=== PATIENT | male | born 1955 | race African-American/Black ===

== ENCOUNTER 2017-06-25 03:57 | Inpatient (IN) | payer OTHER ==
[~2017-06-25] VITALS: Ht 180.3 cm; Wt 127.0 kg
[2017-06-25] VITALS (8 sets, daily range): BP systolic 128–169; BP diastolic 63–89
[2017-06-25] MEDS ORDERED: UNOBMED (04:04)
[2017-06-25 04:20] LABS: BASOPHILS % (AUTO) 1.2 % (0.0-2.0); EOSINOPHILS % (AUTO) 0.6 % (0.0-3.0); LYMPHOCYTES % (AUTO) 36.5 % (20.0-45.0); MEAN CORPUSCULAR HEMOGLOBIN 27.9 PG (27.0-31.0); MEAN CORPUSCULAR VOLUME 87 FL (80-99); MEAN PLATELET VOLUME 6.5 FL (6.5-10.1); NEUTROPHILS % (AUTO) 52.6 % (45.0-75.0); PLATELET COUNT 256 K/UL (150-450); RED BLOOD COUNT 5.35 M/UL (4.70-6.10); RED CELL DISTRIBUTION WIDTH 12.9 % (11.6-14.8); WHITE BLOOD COUNT 8.5 K/UL (4.8-10.8)
--- NOTE | 2017-06-25 04:21 | Emergency Room Report ---
History of Present Illness General Chief Complaint: Seizure Source: Patient Present Illness HPI Patient is a 62-year-old male who presented after having a witnessed seizure. The patient had no prior history of seizure disorder. The patient had a seizure approximately one to 2 minutes full body tonic-clonic. This was witnessed by his . Patient was in bed at the time of seizure. The patient been previously well. He does not take any seizure medications. He had not been having any recent fever or illness. The patient reports having some pain to his tongue. The patient currently does not drink alcohol regularly. Allergies: Coded Allergies: No Known Allergies (Unverified , 06/25/17) Patient History Past Medical History: see triage record Reviewed Nursing Documentation: PMH: Agreed, PSxH: Agreed Nursing Documentation-PMH Hx Hypertension: Yes Review of Systems All Other Systems: negative except mentioned in HPI Physical Exam Vital Signs Date Time Temp Pulse Resp B/P (MAP) Pulse Ox O2 Delivery O2 Flow Rate FiO2 06/25/17 03:59 98.1 70 12 169/78 92 Room Air Sp02 EP Interpretation: reviewed, normal General Appearance: normal inspection, well appearing, no apparent distress, alert, GCS 15, obese Head: atraumatic ENT: normal ENT inspection, hearing grossly normal, normal voice, other - tongue abrasion Neck: normal inspection, full range of motion, supple, no bony tend Respiratory: normal inspection, lungs clear, normal breath sounds, no respiratory distress, no retraction, no wheezing Cardiovascular #1: regular rate, rhythm, no edema Gastrointestinal: normal inspection, normal bowel sounds, non tender, soft, no guarding, no hernia Genitourinary: no CVA tenderness Musculoskeletal: normal inspection, back normal, normal range of motion Neurologic: normal inspection, alert, oriented x3, responsive, guest services manager III-XII nml as tested, motor strength/tone normal, speech normal Psychiatric: normal inspection, judgement/insight normal, mood/affect normal Skin: normal inspection, normal color, no rash Medical Decision Making Diagnostic Impression: Primary Impression: Epileptic seizure, generalized ER Course Patient presented for new-onset seizure. Differential diagnosis included cysticercosis, CVA, meningitis, encephalitis, electrolyte abnormality, mass lesion, or cranial hemorrhage. Because of complexity of patient's case laboratory testing and imaging studies were ordered.EKG interpreted by me showed normal sinus rhythm with a rate of [address] or T wave changes. QTC was noted to be slightly prolonged 467. the patient was noted to have gradually improving mental status. CT the head read by radiology showed a prior orbital blowout fracture without acute intracranial abnormality. Dr. Bloden was contacted for capitated physician. The patient was given aspirin by mouth. Patient is given Maalox for GI prophylaxis due to prior history of ulcer Labs Test 06/25/17 04:05 White Blood Count 8.5 K/UL (4.8-10.8) Red Blood Count 5.35 M/UL (4.70-6.10) Hemoglobin 14.9 G/DL (14.2-18.0) Hematocrit 46.7 % (42.0-52.0) Mean Corpuscular Volume 87 FL (80-99) Mean Corpuscular Hemoglobin 27.9 PG (27.0-31.0) Mean Corpuscular Hemoglobin Concent 32.0 G/DL (32.0-36.0) Red Cell Distribution Width 12.9 % (11.6-14.8) Platelet Count 256 K/UL (150-450) Mean Platelet Volume 6.5 FL (6.5-10.1) Neutrophils (%) (Auto) 52.6 % (45.0-75.0) Lymphocytes (%) (Auto) 36.5 % (20.0-45.0) Monocytes (%) (Auto) 9.0 % (1.0-10.0) Eosinophils (%) (Auto) 0.6 % (0.0-3.0) Basophils (%) (Auto) 1.2 % (0.0-2.0) Prothrombin Time 10.0 SEC (9.30-11.50) Prothromb Time International Ratio 1.0 (0.9-1.1) Activated Partial Thromboplast Time 24 SEC (23-33) Sodium Level 138 MMOL/L (136-145) Potassium Level 3.4 MMOL/L (3.5-5.1) Chloride Level 103 MMOL/L (98-107) Carbon Dioxide Level 25 MMOL/L (21-32) Anion Gap 10 mmol/L (5-15) Blood Urea Nitrogen 13 mg/dL (7-18) Creatinine 1.2 MG/DL (0.55-1.30) Estimat Glomerular Filtration Rate > 60 mL/min (>60) Glucose Level 145 MG/DL (74-106) Calcium Level 8.7 MG/DL (8.5-10.1) Total Bilirubin 0.4 MG/DL (0.2-1.0) Aspartate Amino Transf (AST/SGOT) 24 U/L (15-37) Alanine Aminotransferase (ALT/SGPT) 37 U/L (12-78) Alkaline Phosphatase 83 U/L (46-116) Troponin I 0.000 ng/mL (0.000-0.056) Total Protein 7.6 G/DL (6.4-8.2) Albumin 3.7 G/DL (3.4-5.0) Globulin 3.9 g/dL Albumin/Globulin Ratio 0.9 (1.0-2.7) Triglycerides Level 117 MG/DL (0-200) Cholesterol Level 198 MG/DL (< 200) LDL Cholesterol 115 mg/dL (<100) HDL Cholesterol 53 MG/DL (40-60) Cholesterol/HDL Ratio 3.7 (3.3-4.4) EKG Diagnostic Results Rate: normal Rhythm: NSR ST Segments: no acute changes Last Vital Signs Date Time Temp Pulse Resp B/P (MAP) Pulse Ox O2 Delivery O2 Flow Rate FiO2 06/25/17 03:59 98.1 70 12 169/78 92 Room Air Status: unchanged Disposition: ADMITTED INPATIENT Condition: Serious Matt Hammonds Jun 25, 2017 04:21
[2017-06-25] MEDS ORDERED: levETIRAcetam 1,000mg/NS100ml 100 ML IVPB ONE (04:30)
[2017-06-25 04:34] LABS: ANION GAP 10 mmol/L (5-15); CALCIUM 8.7 MG/DL (8.5-10.1); CARBON DIOXIDE 25 MMOL/L (21-32); CHLORIDE 103 MMOL/L (98-107); CREATININE 1.2 MG/DL (0.55-1.30); GLOMERULAR FILTRATION RATE > 60 mL/min (>60); POTASSIUM 3.4 MMOL/L (3.5-5.1); SODIUM 138 MMOL/L (136-145)
[2017-06-25 04:39] LABS: ALANINE AMINOTRANSFERASE 37 U/L (12-78); ALBUMIN/GLOBULIN RATIO 0.9 (1.0-2.7); ASPARTATE AMINO TRANSFERASE 24 U/L (15-37); CHOLESTEROL 198 MG/DL (< 200); CHOLESTEROL/HDL RATIO 3.7 (3.3-4.4); TOTAL PROTEIN 7.6 G/DL (6.4-8.2)
[2017-06-25] MEDS ORDERED: AMLODIPINE BES2.5 MG ORAL (05:04)
[2017-06-25] MEDS ORDERED: Aspirin Baby 81mg ORAL ONE ×2 (05:45→09:00)
--- NOTE | 2017-06-25 09:23 | Diagnostic Imaging Report ---
Indication: Altered mental status Technique: Continuous helical CT scanning of the head was performed without intravenous contrast material. Axial and coronal 5 mm sections were generated. Radiation dose was minimized using automated exposure control Dose: Total Dose Length Product - DLP [address] Dose Index - CTDIvol(s) 70.38 mGy. Comparison: None Findings: The ventricular system is normal in size and configuration. There is no shift of midline structures. No abnormal extra-axial fluid collections are noted. There is no evidence of intracerebral bleeding. No other abnormal high or low density areas are noted within the brain. The calvarium is intact. The mastoids are clear. There is slight deformity of the right inferior and medial orbital mota and questionably the nasal bone, could be posttraumatic. Impression: Normal CT scan of the head without contrast material. Possible posttraumatic changes of the right orbit nasal bone-correlate with clinical history This agrees with the preliminary interpretation provided overnight by [facility] teleradiology service. The CT scanner at [facility] is accredited by the [employer] and the scans are performed using protocols designed to limit radiation exposure to as low as reasonably achievable to attain images of sufficient resolution adequate for diagnostic evaluation.
[2017-06-25] MEDS ORDERED: PRAVASTATIN SOD20 M1 ORAL (10:29)
[2017-06-25] MEDS ORDERED: WARFARIN SODIUM10 MG ORAL (10:42)
--- NOTE | 2017-06-25 11:57 | Neurology Progress Note ---
Objective Physical Exam Last Vital Signs Date Time Temp Pulse Resp B/P (MAP) Pulse Ox O2 Delivery O2 Flow Rate FiO2 06/25/17 08:32 56 20 131/71 99 Nasal Cannula 2.0 06/25/17 07:55 97.7 Laboratory Tests Test 06/25/17 04:05 White Blood Count 8.5 K/UL (4.8-10.8) Red Blood Count 5.35 M/UL (4.70-6.10) Hemoglobin 14.9 G/DL (14.2-18.0) Hematocrit 46.7 % (42.0-52.0) Mean Corpuscular Volume 87 FL (80-99) Mean Corpuscular Hemoglobin 27.9 PG (27.0-31.0) Mean Corpuscular Hemoglobin Concent 32.0 G/DL (32.0-36.0) Red Cell Distribution Width 12.9 % (11.6-14.8) Platelet Count 256 K/UL (150-450) Mean Platelet Volume 6.5 FL (6.5-10.1) Neutrophils (%) (Auto) 52.6 % (45.0-75.0) Lymphocytes (%) (Auto) 36.5 % (20.0-45.0) Monocytes (%) (Auto) 9.0 % (1.0-10.0) Eosinophils (%) (Auto) 0.6 % (0.0-3.0) Basophils (%) (Auto) 1.2 % (0.0-2.0) Prothrombin Time 10.0 SEC (9.30-11.50) Prothromb Time International Ratio 1.0 (0.9-1.1) Activated Partial Thromboplast Time 24 SEC (23-33) Sodium Level 138 MMOL/L (136-145) Potassium Level 3.4 MMOL/L (3.5-5.1) L Chloride Level 103 MMOL/L (98-107) Carbon Dioxide Level 25 MMOL/L (21-32) Anion Gap 10 mmol/L (5-15) Blood Urea Nitrogen 13 mg/dL (7-18) Creatinine 1.2 MG/DL (0.55-1.30) Estimat Glomerular Filtration Rate > 60 mL/min (>60) Glucose Level 145 MG/DL (74-106) H Calcium Level 8.7 MG/DL (8.5-10.1) Total Bilirubin 0.4 MG/DL (0.2-1.0) Aspartate Amino Transf (AST/SGOT) 24 U/L (15-37) Alanine Aminotransferase (ALT/SGPT) 37 U/L (12-78) Alkaline Phosphatase 83 U/L (46-116) Troponin I 0.000 ng/mL (0.000-0.056) Total Protein 7.6 G/DL (6.4-8.2) Albumin 3.7 G/DL (3.4-5.0) Globulin 3.9 g/dL Albumin/Globulin Ratio 0.9 (1.0-2.7) L Triglycerides Level 117 MG/DL (0-200) Cholesterol Level 198 MG/DL (< 200) LDL Cholesterol 115 mg/dL (<100) H HDL Cholesterol 53 MG/DL (40-60) Cholesterol/HDL Ratio 3.7 (3.3-4.4) Impression/Recommendations Problems: (1) Epileptic seizure, generalized Status: unchanged Recommendations # [id number] KEMI ERVIN Jun 25, 2017 11:57
--- NOTE | 2017-06-25 12:00 | Diagnostic Imaging Report ---
Indication: SOB Technique: One view of the chest Comparison: none Findings: Patient is rotated to the right. Lungs and pleural spaces are clear. Heart size is upper limits normal. Impression: No acute process This agrees with the preliminary interpretation provided by the emergency room physician
--- NOTE | 2017-06-25 14:10 | Diagnostic Imaging Report ---
Indication: 62-year-old male inpatient with new onset seizures Technique: sagittal T1 fast spin echo, axial T1 FLAIR, axial T2 FLAIR, axial T2 FS PROPELLER, axial T2* GRE, axial diffusion weighted images. ADC and exponential ADC maps generated Comparison: None Findings: Tiny punctate focus of increased signal is seen in the posterior right parietal lobe on the diffusion-weighted images, image 22 of series 3. No corresponding T2 abnormality. No other foci of restricted diffusion to suggest acute infarct demonstrated. No acute hemorrhage or edema. No mass effect nor midline shift. Normal size ventricles and extra axial CSF spaces. Visualized orbits and sinuses are unremarkable. Vascular flow voids are preserved Impression: Tiny punctate focus of abnormal diffusion signal in the posterior parietal lobe on the diffusion-weighted images. Suspect artifactual, but tiny acute infarct not completely excludable. No evidence of acute infarct. No acute intracranial bleed or mass effect Findings provided by phone to Dr. Boggs at the time of interpretation
--- NOTE | 2017-06-25 15:23 | Cardiology Report ---
APPROVED REPORT EXAM: Two-dimensional and M-mode echocardiogram with Doppler and color Doppler. INDICATION Arrhythmia Paradoxic embolisation M-Mode DIMENSIONS IVSd1.4 (0.7-1.1cm)Left Atrium (MM)4.6 (1.6-4.0cm) LVDd3.4 (3.5-5.6cm)Aortic Root3.2 (2.0-3.7cm) PWd1.1 (0.7-1.1cm)Aortic Cusp Exc.1.4 (1.5-2.0cm) LVDs1.5 (2.5-4.0cm) PWs1.9 cm Technically difficult study due to poor parasternal acoustical windows. Study quality precludes accurate assessment of regional wall motion. Normal left ventricular chamber size, systolic function and wall motion. Left ventricular ejection fraction estimated to be 60 %. Mild left ventricular hypertrophy. No evidence of pericardial effusion. All other cardiac chamber sizes are within normal limits. Mild focal aortic valve sclerosis with adequate cusp excursion. Mildly thickened mitral valve leaflets with normal excursion. Mild mitral annulus and aortic root calcification. Normal pulmonic valve structure. Normal tricuspid valve structure. Subcostal views not obtainable. A color flow and spectral Doppler study was performed and revealed: No aortic regurgitation. Mild mitral regurgitation. Mitral diastolic velocities suggest reduced left ventricular relaxation c/w mild LV diastolic dysfunction (Grade I ). Trace tricuspid regurgitation. Tricuspid systolic velocities suggests peak right ventricular systolic pressure of 21 mmHg. No pulmonic regurgitation present.
--- NOTE | 2017-06-25 16:24 | Cardiology Report ---
APPROVED REPORT EKG Measurement Heart [id number] TN [id number] Normal sinus rhythm Normal ECG
[2017-06-25] MEDS ORDERED: Warfarin Sodium 10mg ORAL SCH (17:00)
--- NOTE | 2017-06-25 22:45 | Consultation ---
DATE OF CONSULTATION: 06/25/2017 NEUROLOGICAL CONSULTATION DATE OF ADMISSION: 06/25/2017. REQUESTING PHYSICIAN: Kenneth Bolden M.D. HISTORY OF PRESENT ILLNESS: This is a 62-year-old gentleman, who was seen in neurological consultation to evaluate the episode of generalized clonic-tonic seizure. According to the patient, he was in usual good state of health until about three nights prior as he started to develop mild, on a 1-10 scale about 2, headaches in the right frontal region. They would come and go nighttime. The patient denies any other signs preceding his seizure. There was no unilateral weakness, numbness, or tingling. There was no full upper respiratory infection. No changes in lifestyle. At 3 a.m., he was in bed sleeping with his , who noticed that he turned around, then severely stiffened up with a loud voice. His body appeared to be shaking. This lasted about 2 minutes. He was unresponsive then, upon awakening was quite confused. Meanwhile, paramedics were called to the scene. His vital signs were stable. Blood pressure 169/78, respirations 12, heart rate of 70, and temperature 98.1 degrees. The patient was still confused. He had episode of nausea and vomiting. He has a bitten tongue. On arrival to the emergency room, blood work was obtained and revealed normal CBC. Normal chemistry panel with blood sugar 135, potassium 3.4, and LDL of 115. Normal troponin. Coagulation panel normal. Stat CT scan of the brain was obtained. This revealed a normal study with posttraumatic changes in the right orbital nasal bone. There are no intracranial abnormalities. No hemorrhage. Since admission until present, there was no further paroxysmal event. The patient now indicated that he has no previous history of loss of consciousness or seizures. Family history noncontributory, although his mother who had a stroke had developed a few episodes of seizures. Currently, she is . PAST MEDICAL HISTORY: The patient has a history of obesity, history of left lower extremity DVT diagnosed in 1998, pulmonary embolism. He was maintained on anticoagulation for a few years, then stopped and developed recurrent DVT in 2004. Since then, he is maintained on anticoagulation. He has a history of hypertension and hyperlipidemia. MEDICATIONS: His treatment at home included warfarin, Prilosec, and amlodipine. ALLERGIES: None reported. SOCIAL HISTORY: . No alcohol. No drug abuse. Nonsmoker. Working at local . REVIEW OF SYMPTOMS: Currently, feels fairly well except the discomfort in the bitten tongue. Denies headache or dizziness. No chest pain. No palpitations. No respiratory problems. Denies weakness, numbness, or tingling. The patient noted to have tremors in his left lower extremity. He maintained this over the last several years, usually involuntary when stressed out. He is able to control it properly. PHYSICAL EXAMINATION: GENERAL: Well-developed, moderately obese man, not in acute distress, lying comfortably in bed. His at the bedside. VITAL SIGNS: Now are stable. Blood pressure 136/89, heart rate of 54, his pulse oximetry dropped down to 92, currently on oxygen nasal cannula two liters per minute. HEENT: Head normocephalic. No evidence of trauma. Eyes, ears, and throat are clear except bitten tongue. NECK: Supple. No meningeal signs. MUSCULOSKELETAL: A 1+ pitting edema in the distal aspect of both lower extremities. Peripheral pulses 1+ and symmetric. MENTAL STATUS: Alert and oriented x3. No evidence of aphasia. No apraxia. Cognitive function normal. Retrograde amnesia on event. CRANIAL NERVES II: Pupils both responding to light and accommodation. Extraocular movements intact. No nystagmus. CRANIAL NERVES V: Normal corneal responses. CRANIAL NERVES VII: No facial asymmetry. CRANIAL NERVES VIII: Grossly normal hearing. CRANIAL NERVES IX THROUGH XII: Tongue is in midline. Symmetric palate elevation. MOTOR EXAMINATION: Normal muscle tone. Strength 5/5 in all extremities. No involuntary movement. Deep reflexes 1+ symmetric with downgoing toes on both sides. SENSORY EXAM: Normal to pinprick and light touch. Gait is slow, but stable. IMPRESSION: 1. Single generalized clonic-tonic seizure episode, etiology undetermined. 2. Hypertension. 3. Hyperlipidemia. 4. obese. 5. Hypercoagulable state, recurrent deep venous thrombosis. 6. History of right-sided head trauma in 1990. DISCUSSION: The patient has no obvious reason for having generalized clonic-tonic seizure. There is a history of old head trauma without loss of consciousness, presumably mild cerebral contusion took place. In addition, the patient has multiple stroke risk factors and minor lacunar strokes is not excluded. We will obtain 2D echocardiogram to rule out a paradoxical embolization, get MRI of the brain without contrast. Obtain electroencephalogram. The patient to start on Keppra while he will continue with this baseline treatment including pravastatin, Coumadin, and amlodipine. I discussed the patient's current status and prognosis with the patient and his . Thank you for allowing me to see this interesting patient in neurological consultation. Felipe Tang Boggs DR: Thu JOB#: [id number] CC:
[2017-06-26] VITALS: BP 136/81
--- NOTE | 2017-06-26 03:15 | History and Physical Report ---
DATE OF ADMISSION: 06/25/2017 HISTORY OF PRESENT ILLNESS: This 62-year-old male came to the emergency room for having possibly had a seizure noted by and he was shaking all over the body and was unresponsive. The patient currently alert, awake, no distress. PAST MEDICAL HISTORY: Significant for hypertension, hyperlipidemia, and overweight. MEDICATIONS: None. ALLERGIES: NKA. SOCIAL HISTORY: The patient denies any smoking and drinking. Denies any illegal drugs. REVIEW OF SYSTEMS: No weakness. No nausea. No vomiting. No abdominal pain. Lately, having some headache. No fever. No chills. No neck rigidity. PHYSICAL EXAMINATION: GENERAL: This is an elderly obese male, who is currently sitting in bed. is also at bedside. VITAL SIGNS: Blood pressure is 130/90, pulse 68, respirations 18, no fever. SKIN: Good skin turgor. HEENT: NAD. CHEST: Bilaterally clear. CARDIOVASCULAR: Regular rhythm. No gallop. No murmur. ABDOMEN: Soft. Positive bowel sounds. Nontender. GENITOURINARY: Deferred. EXTREMITIES: No swelling. LABORATORY AND DIAGNOSTIC DATA: Potassium slightly low 3.4, otherwise unremarkable. MRI of the brain is normal. ASSESSMENT AND PLAN: 1. Seizure. 2. Hypertension. 3. Hyperlipidemia. 4. Hypokalemia. We will admit on telemetry bed. Consider Neurology consult. Neurology already has seen the patient, ordering an EEG. Continue neuro check. Continue supportive treatment and continue medical treatment. Discussed with the patient and family. Depends on the EEG report, and if EEG normal, probably he can go home and drive. If EEG is positive, then the patent probably cannot drive. Bert Bolden M.D. DR: Jose JOB#: [id number] CC:
[2017-06-26 08:02] LABS: PROTHROMBIN TIME 10.5 SEC (9.30-11.50)
[2017-06-26 10:40] VITALS: BP 145/90
--- NOTE | 2017-06-26 12:02 | Neurology Progress Note ---
Interim History Interim History ROS Limited/Unobtainable: No Complaints: intermittent R parietal ANDRADE Events: stable Objective Physical Exam Last Vital Signs Date Time Temp Pulse Resp B/P (MAP) Pulse Ox O2 Delivery O2 Flow Rate FiO2 06/26/17 10:43 59 145/90 06/26/17 10:40 98.2 20 95 Room Air 06/25/17 08:32 2.0 Laboratory Tests Test 06/26/17 07:15 Prothrombin Time 10.5 SEC (9.30-11.50) Prothromb Time International Ratio 1.0 (0.9-1.1) General: well developed, no acute distress, other - obese Head: normocophalic, atraumatic Neck: no rigidity EENT: benign Neurologic Exam Mental Status: awake, alert, oriented x4, normal cognition, good mathematical skills, normal recent memory, normal remote memory, preserved visuospatial function Speech: normal speech, no dysarthia Language: normal language, no aphasia Cranial Nerve II: fundus normal, visual beard, no papilledema Cranial Nerves III, IV, : PERRLA, EOMI, pupils Cranial Nerve V: normal facial sensations, temporales function normal, masseters function normal, pterygoids function normal Cranial Nerve VII: no facial asymmetry, normal facial expressions Cranial Nerve VIII: normal hearing, no nystagmus Cranial Nerve IX: normal palate elevation, gag response Cranial Nerve X: no voice hoarseness Cranial Nerve XI: SCM symmetric, trapezii function normal Cranial Nerve XII: tongue midline, no tongue atrophy/fasciculations Motor System: normal muscle tone, strength 5/5, no involuntary movement, no muscle wasting, other - intermittent L leg tremors, involuntary, "since young age" Sensory: normal pinprick, normal light touch, normal position sense, normal graphesthesia Coordination: normal finger to nose bilaterally, normal heel to freeman bilaterally, negative Romberg test Deep Tendon Reflexes: 1+ bicep (L), 1+ bicep (R), 1+ tricep (L), 1+ tricep (R) , 1+ brachioradialis (L), 1+ brachioradialis (R), 1+ knee (L), 1+ knee (R), 1+ ankle (L), 1+ ankle (R) Reflexes: flexor plantar (L), flexor plantar (R) Stance: normal Gait: stable, normal regular, heel + toe gait Impression/Recommendations Problems: (1) Single generalised seizure event (2) acute R MCA ischemic lacunar stroke (3) chronic intermittent L leg tremors (4) exogenic obesity (5) hypercoagulable state , recurrent DVT/PE Status: stable, unchanged Recommendations # [id number]\\ keppra 500bid maintenance DMV notified no driving x 3mo KEMI ERVIN Jun 26, 2017 12:02
--- NOTE | 2017-06-26 15:45 | Electroencephalogram ---
DATE OF PROCEDURE: 06/25/2017 ELECTROENCEPHALOGRAPHY REPORT REQUESTING PHYSICIAN: Bert Bolden M.D. HISTORY: A 62 years old man, who has a single generalized seizure episode in the setting of multiple stroke risk factors. EEG was done using 18 electrodes placed on [id number], [id number] montages according to 10/20 International System. The patient now maintained on Keppra, [place], and Norvasc. Most wakeful portions of recording, background activity consists of well regulated 8 cycles per second alpha activity low to medium voltage, with good response to physiological stimulation. Photic stimulation from 3 to 32 hertz was done resulting normal symmetric photic drive. As recording progressed, there was attenuation of background activity with appearance of sleep spindles bilaterally. There was no spike and wave activity. No paroxysmal activities noted. IMPRESSION: Normal awake stage 1 sleep EEG with photic stimulation. COMMENT: Absence of paroxysmal event on a single recording does not rule out seizure disorder. Felipe Boggs M.D. DR: Thu JOB#: [id number] CC:
[2017-06-26 15:46] VITALS: BP 132/76
[2017-06-26] MEDS ORDERED: Warfarin Sodium 10mg ORAL ONE (17:00)
[2017-06-26] MEDS ORDERED: Warfarin Sodium 7.5mg ORAL SCH (17:00)
[2017-06-26] MEDS: Aspirin Baby 81mg ORAL SCH (17:23)
[2017-06-26 20:00] VITALS: BP 129/73
--- NOTE | 2017-06-26 20:00 | Progress Note ---
DATE: 06/26/2017 SUBJECTIVE: This is a 62-year-old male, currently was found to have a minor stroke on MRI. The patient is otherwise alert, awake, and in no distress. He has no seizure. The patient has been taking anticoagulation and it has been not working. Hematology/Oncology consult was obtained and placed on Coumadin. The patient is waiting for ultrasound venous duplex. OBJECTIVE: VITAL SIGNS: Stable. CHEST: Bilaterally clear. CARDIOVASCULAR: Regular rhythm. ABDOMEN: Soft. EXTREMITIES: CCE. ASSESSMENT: 1. Minor cerebrovascular accident. 2. Hypertension. 3. Obesity. PLAN: Currently, continue aspirin and Coumadin. Continue antihypertensive medication. Discussed with the charge nurse and waiting for ultrasound venous duplex. Followup the labs. Bert Bolden M.D. DR: VERONICA JOB#: [id number] CC:
[2017-06-26] MEDS: Enoxaparin 30mg Inj SUBQ SCH (21:28)
[2017-06-26] MEDS: Enoxaparin 100mg Inj SUBQ SCH (21:28)
[2017-06-27] VITALS: BP 125/70
[2017-06-27 04:00] VITALS: BP 131/75
[2017-06-27 07:07] LABS: PROTHROMBIN TIME 10.9 SEC (9.30-11.50)
[2017-06-27 08:00] VITALS: BP 140/88
--- NOTE | 2017-06-27 09:02 | Consultation ---
DATE OF CONSULTATION: 06/26/2017 HEMATOLOGY/ONCOLOGY CONSULTATION CONSULTING PHYSICIAN: Dylan Vazquez M.D. REQUESTING PHYSICIAN: Bert Bolden M.D. REASON FOR CONSULTATION: Evaluation of DVT and anticoagulation due to the history of stroke. IDENTIFICATION DATA: Dear Dr. Bert Bolden: The patient is a pleasant 62-year-old male with past medical history significant for seizure disorder, hypertension, hyperlipidemia, and obesity. At this time, he presents to the hospital with episode of generalized tonic-clonic seizure. According to the patient, he has been in good health until several months ago. He did have mild 1 out of 10 pain, headaches in the right frontal region. Blood pressure was noted to be elevated. Coagulation panel was within normal limits. CAT scan of the brain obtained showed posttraumatic changes of the right orbital nasal bone. No intracranial structural damage. Labs were obtained. INR within normal limits. He had CBC as well was within normal limits. Hematology/Oncology service was consulted for evaluation of anticoagulation. PAST MEDICAL HISTORY: DVT history diagnosed in 1998, pulmonary embolism with history of anticoagulation for several years and stopped and developed recurrent DVT in 2004. Since then, he has maintained on anticoagulation, hypertension, and hyperlipidemia. MEDICATIONS: Warfarin, Prilosec, and amlodipine. ALLERGIES: None reported. SOCIAL HISTORY: . No alcohol, tobacco, or illicit drug use. REVIEW OF SYSTEMS: CONSTITUTIONAL: No fevers, chills, or night sweats. SKIN: No rashes, bumps, or itching. HEENT: No headache, hearing, or vision changes. BREASTS: No lumps, pain, or discharge. PULMONARY: No cough, sputum, or shortness of breath. GASTROINTESTINAL: No nausea, vomiting, or diarrhea. GENITOURINARY: No dysuria, frequency, or urgency. MUSCULOSKELETAL: No joint swelling, muscle pain, or trauma. PHYSICAL EXAMINATION: GENERAL: No acute distress. VITAL SIGNS: Reviewed. PULMONARY: Decreased breath sounds. CARDIOVASCULAR: Regular rate. No S3 or S4. ABDOMEN: Soft, nontender, and nondistended. EXTREMITIES: 1+ edema. LABORATORY AND DIAGNOSTIC DATA: Labs within normal limits. Imaging has been reviewed. Duplex of lower extremities pending. MRI of the brain shows abnormal diffusely posterior parietal lobe. ASSESSMENT AND RECOMMENDATIONS: 1. Recurrent deep venous thrombosis. Obtain duplex of lower extremity to evaluate further. Begin the patient on warfarin as well as Lovenox. INR goal between 2 and 3. 2. Pulmonary embolism in 1998. Continue warfarin with INR goal between 2 and 3. The patient has not been taking his warfarin. INR is 1 on admission. 3. Intermittent right parietal headache potentially secondary to stroke, lacunar. 4. Obesity, exogenous. 5. Hypercoagulable disorder, has not been taking Coumadin, has not been compliant both Coumadin and/or Lovenox. 6. Noncompliance. The patient's INR is 1 on admission. Therefore, has not been reported on treatment and recommended the use of Coumadin and Lovenox. Dylan Vazquez M.D. DR: Haseeb JOB#: [id number] CC:
[2017-06-27] MEDS: Aspirin Baby 81mg ORAL SCH (09:07)
[2017-06-27] MEDS: Enoxaparin 100mg Inj SUBQ SCH (09:11)
[2017-06-27] MEDS: Enoxaparin 30mg Inj SUBQ SCH (09:12)
[2017-06-27] MEDS ORDERED: XARELTO20 MG ORAL ×2 (11:39→11:40)
[2017-06-27] MEDS ORDERED: XARELTO15 MG ORAL ×2 (11:39→11:40)
--- NOTE | 2017-06-27 11:44 | Neurology Progress Note ---
Interim History Interim History ROS Limited/Unobtainable: No Complaints: no more ANDRADE still with L leg tremors Events: stable Objective Physical Exam Last Vital Signs Date Time Temp Pulse Resp B/P (MAP) Pulse Ox O2 Delivery O2 Flow Rate FiO2 06/27/17 09:07 60 140/88 06/27/17 08:00 97.8 21 94 Room Air 06/25/17 08:32 2.0 Laboratory Tests Test 06/27/17 06:25 Prothrombin Time 10.9 SEC (9.30-11.50) Prothromb Time International Ratio 1.0 (0.9-1.1) General: well developed, no acute distress, other - obese Head: normocophalic, atraumatic Neck: no rigidity EENT: benign Neurologic Exam Mental Status: awake, alert, oriented x4, normal cognition, good mathematical skills, normal recent memory, normal remote memory, preserved visuospatial function Speech: normal speech, no dysarthia Language: normal language, no aphasia Cranial Nerve II: fundus normal, visual beard, no papilledema Cranial Nerves III, IV, : PERRLA, EOMI, pupils Cranial Nerve V: normal facial sensations, temporales function normal, masseters function normal, pterygoids function normal Cranial Nerve VII: no facial asymmetry, normal facial expressions Cranial Nerve VIII: normal hearing, no nystagmus Cranial Nerve IX: normal palate elevation, gag response Cranial Nerve X: no voice hoarseness Cranial Nerve XI: SCM symmetric, trapezii function normal Cranial Nerve XII: tongue midline, no tongue atrophy/fasciculations Motor System: normal muscle tone, strength 5/5, no involuntary movement, no muscle wasting, other - intermittent L leg tremors, involuntary, "since young age" Sensory: normal pinprick, normal light touch, normal position sense, normal graphesthesia Coordination: normal finger to nose bilaterally, normal heel to freeman bilaterally, negative Romberg test Deep Tendon Reflexes: 1+ bicep (L), 1+ bicep (R), 1+ tricep (L), 1+ tricep (R) , 1+ brachioradialis (L), 1+ brachioradialis (R), 1+ knee (L), 1+ knee (R), 1+ ankle (L), 1+ ankle (R) Reflexes: flexor plantar (L), flexor plantar (R) Stance: normal Gait: stable, normal regular, heel + toe gait Impression/Recommendations Problems: (1) Single generalised seizure event (2) acute R MCA ischemic lacunar stroke (3) chronic intermittent L leg tremors (4) exogenic obesity (5) hypercoagulable state , recurrent DVT/PE Status: stable, unchanged Recommendations # [id number]\\ keppra 500bid maintenance DMV notified no driving x 3mo neuro stable KEMI ERVIN Jun 27, 2017 11:43
[2017-06-27 12:00] VITALS: BP 139/89
--- NOTE | 2017-06-27 16:31 | Nephrology Progress Note ---
Assessment/Plan Problem List: (1) Single generalised seizure event (2) acute R MCA ischemic lacunar stroke (3) hypercoagulable state , recurrent DVT/PE (4) chronic intermittent L leg tremors (5) Hypokalemia Plan Agree with discharge f/u with PCP and neuro outpt Subjective Constitutional: Denies: no symptoms, chills, diaphoresis, fever, malaise, weakness, other HEENT: Denies: no symptoms, eye pain, blurred vision, tearing, double vision, ear pain, ear discharge, nose pain, nose congestion, throat pain, throat swelling, mouth pain, mouth swelling, other Genitourinary: Denies: no symptoms, burning, discharge, frequency, flank pain, hematuria, incontinence, pain, urgency, other Neurologic/Psychiatric: Denies: no symptoms, anxiety, depressed, emotional problems, headache, numbness, paresthesia, pre-existing deficit, seizure, tingling, tremors, weakness, other Subjective States that he feels ok and has been discharged Objective Objective Last 24 Hour Vital Signs Date Time Temp Pulse Resp B/P (MAP) Pulse Ox O2 Delivery O2 Flow Rate FiO2 06/27/17 12:00 97.9 66 21 139/89 96 Room Air 06/27/17 12:00 66 06/27/17 09:07 60 140/88 06/27/17 08:00 61 06/27/17 08:00 97.8 60 21 140/88 94 Room Air 06/27/17 04:00 56 06/27/17 04:00 97.9 67 18 131/75 100 Room Air 06/27/17 00:00 60 18 125/70 97 Room Air 06/27/17 00:00 63 06/26/17 20:00 97.9 62 20 129/73 95 06/26/17 20:00 98.6 06/26/17 20:00 67 Laboratory Tests 06/27/17 06:25: Prothrombin Time 10.9, Prothromb Time International Ratio 1.0 Height (Feet): 5 Height (Inches): 11.00 Weight (Pounds): 280 General Appearance: no apparent distress, alert EENT: normal ENT inspection Neck: normal alignment Cardiovascular: normal rate, regular rhythm, no JVD Respiratory/Chest: normal breath sounds, no respiratory distress Abdomen: soft, no organomegaly Neurologic: alert, oriented x 3, responsive, normal mood/affect Carol Robles N.P. Jun 27, 2017 16:31
[2017-06-27] MEDS ORDERED: WARFARIN SOD ORAL SCH ×2 (17:00)
--- NOTE | 2017-06-27 17:14 | General Progress Note ---
Assessment/Plan Assessment/Plan ASSESSMENT AND RECOMMENDATIONS: 1. Recurrent deep venous thrombosis. Obtain duplex of lower extremity to evaluate further. Will begin xarelto. 2. Intermittent right parietal headache potentially secondary to stroke, lacunar. 4. Obesity, exogenous. 5. Hypercoagulable disorder 6. Noncompliance. The patient's INR is 1 on admission. Therefore, has not been reported on treatment and recommended the use of Coumadin and Lovenox. Subjective Allergies: Coded Allergies: No Known Allergies (Unverified , 06/25/17) All Systems: reviewed and negative except above Subjective no events overnight Objective Last 24 Hour Vital Signs Date Time Temp Pulse Resp B/P (MAP) Pulse Ox O2 Delivery O2 Flow Rate FiO2 06/27/17 12:00 97.9 66 21 139/89 96 Room Air 06/27/17 12:00 66 06/27/17 09:07 60 140/88 06/27/17 08:00 61 06/27/17 08:00 97.8 60 21 140/88 94 Room Air 06/27/17 04:00 56 06/27/17 04:00 97.9 67 18 131/75 100 Room Air 06/27/17 00:00 60 18 125/70 97 Room Air 06/27/17 00:00 63 06/26/17 20:00 97.9 62 20 129/73 95 06/26/17 20:00 98.6 06/26/17 20:00 67 Laboratory Tests 06/27/17 06:25: Prothrombin Time 10.9, Prothromb Time International Ratio 1.0 Height (Feet): 5 Height (Inches): 11.00 Weight (Pounds): 280 General Appearance: no apparent distress EENT: normal ENT inspection Neck: normal alignment Cardiovascular: normal rate, regular rhythm Respiratory/Chest: decreased breath sounds Abdomen: non tender Extremities: non-tender Neurologic: experimental rocketsled mechanic II-XII grossly normal Dylan Vazquez Jun 27, 2017 17:13
--- NOTE | 2017-06-27 21:02 | Progress Note ---
DATE: 06/27/2017 PROGRESS NOTE/DISCHARGE SUMMARY HISTORY OF PRESENT ILLNESS: This 62-year-old male who came to the emergency room for having dizziness, weakness, and possible seizure activity. The patient had an MRI done and Neurology was obtained. The patient was found on MRI showing small brain ischemia. The patient was placed on Xarelto. The patient is tolerating Xarelto. He is doing fine and physically he is normal. He is going to go home. Followup as an outpatient with PCP. DISCHARGE DIAGNOSES: 1. Cerebrovascular accident. 2. Hypertension. 3. Hyperlipidemia. DIET: A 2 g sodium diet. ACTIVITY: As tolerated. DISCHARGE MEDICATIONS: Xarelto. Continue his home medications. FOLLOWUP: Followup as an outpatient. Followup with PCP in one week. The patient was instructed about Xarelto for side effect of bleeding so he need to monitor those. Bert Bolden M.D. DR: ANNAMARIE JOB#: [id number] CC:
[2017-06-30] MEDS ORDERED: XARELTO10 MG ORAL ×2 (08:23→10:05)
[2017-06-30] MEDS ORDERED: KEPPRA500 M4 ORAL (08:23)
--- NOTE | 2017-06-30 08:30 | Discharge Summary ---
Discharge Summary Hospital Course Date of Admission Jun 25, 2017 at 04:56 Date of Discharge Jun 27, 2017 at 16:21 Admitting Diagnosis new onset seizure HPI Armani Martinez is a 62 year old male who was admitted on Jun 25, 2017 at 04: 56 for New Onset Seizure Hospital Course dc summary #[id number] Discharge Medications New Medications: Levetiracetam (Keppra) 500 Mg Tablet 500 MG ORAL EVERY 12 HOURS, #60 TAB 0 Refills Rivaroxaban (Xarelto*) 10 Mg Tablet 15 MG ORAL DAILY, #21 TAB 0 Refills take 15 mg daily for 21 days, then change to 20 mg daily Continued Medications: Amlodipine Besylate* (Amlodipine Besylate*) 2.5 Mg Tablet Unknown Dose ORAL DAILY, TAB Pravastatin Sod* (Pravastatin Sod*) 20 Mg Tablet 20 MG ORAL BEDTIME, TAB Rivaroxaban (Xarelto) 20 Mg Tablet 20 MG ORAL for 30 Days, MG 0 Refills Discontinued Medications: Rivaroxaban (Xarelto) 15 Mg Tablet 15 MG ORAL for 30 Days, MG 0 Refills Rivaroxaban (Xarelto) 15 Mg Tablet 15 MG ORAL for 30 Days, MG 0 Refills Rivaroxaban (Xarelto) 20 Mg Tablet 20 MG ORAL for 30 Days, MG 0 Refills Unable to Obtain Medications (Unable To Obtain Meds) 1 Ea Ea Warfarin Sod* (Warfarin Sod*) 10 Mg Tablet 10 MG ORAL DAILY for 3 Days, TAB Discharge Condition Upon Discharge: stable Discharge Disposition Patient was discharged to Home (01) Discharge Diagnoses: Discharge Instructions Discharge Instructions Special Instructions I have been assigned to complete a D/C Summary on this account. I was not involved in the patient management Linda Ackerman NP ([place]te[place]) Jun 30, 2017 08:30
--- NOTE | 2017-06-30 17:00 | Discharge Summary 2 SIG ---
DATE OF ADMISSION: 06/25/2017 DATE OF DISCHARGE: 06/27/2017 REASON FOR ADMISSION: 62-year-old male with past medical history of hypertension and DVT/PE, presented to emergency department with a witnessed seizure episode. The patient had no prior history of seizure. Seizure was a full body tonic-clonic type, lasting about two minutes. He denied any recent fevers or illness. He denied drinking alcohol. Workup in the emergency room revealed elevated blood pressure 169/78, otherwise vital signs were stable. Troponin was negative. Stable hemoglobin and hematocrit. No leukocytosis. EKG revealed normal sinus rhythm, no acute ischemic changes, no evidence of arrhythmia. The patient was admitted for new onset of generalized chronic seizures. HOSPITAL STAY: The patient was admitted to telemetry floor. Neurology consult was requested along with Hematology consult. Neurologist seen and evaluated the patient, started the patient on Keppra. Seizure precautions were maintained. No further episodes of seizure. CT of the head initially done in the emergency room was negative. MRI of the brain revealed a tiny punctate focus of abnormal diffusion signal in the posterior parietal lobe on the diffusion- weighted images. The patient had recurrent right parietal headache, and neurologist diagnosed the patient with acute right middle cerebral artery distribution ischemic lacunar stroke. Lipid panel revealed elevated LDL. The patient was started on statin. The patient was prior on Coumadin, but he was noncompliant. Hematology consult was requested. The patient was started on Xarelto 15 mg twice a day for three weeks and then change to 20 mg daily. Blood pressure was managed with calcium channel clay[place] and was stable. The patient was working with physical and occupational therapists. Venous duplex of bilateral lower extremities was negative. The patient was counseled on cardiac low fat, low cholesterol diet. DMV was notified. No driving for three months. Neurologist cleared patient for discharge. EEG revealed normal awake stage 1 sleep EEG with photic stimulation. However, absence of paroxysmal event on a single recording did not rule out seizure disorder. The patient was stable for discharge. e. FINAL DIAGNOSES: 1. Single episode of generalized seizure, new onset. 2. Acute right middle cerebral artery distribution ischemic lacunar stroke. 3. Hypertension. 4. Hyperlipidemia. 5. Recurrent deep venous thrombosis/pulmonary embolism. 6. History of right-sided head trauma. 7. Obesity. 8. Chronic intermittent left leg tremors. DISCHARGE MEDICATIONS: See medication reconciliation list. DISCHARGE INSTRUCTIONS: The patient was discharged home. Follow up with the primary medical doctor. Reinforced compliance with medication regimen. Bert Bolden M.D. I have been assigned to dictate discharge summary on this account and I was not involved in the patient's management. Linda PachecoRoswell Park Comprehensive Cancer Centerbrittny NHawaPHawa DR: RAMIRO JOB#: [id number] CC: KINSEY
--- NOTE | 2017-07-03 23:14 | Diagnostic Imaging Report ---
APPROVED REPORT CPT Code: 07451 Present Symptoms Upper Extremity Pain: BILATERAL UPPER EXTREMITY: Imaging reveals patency of the internal jugular, subclavian, axillary and brachial veins. The cephalic and basilic veins are also patent. Doppler indicates normal spontaneous flow within these venous segments, bilaterally.
--- NOTE | 2017-07-03 23:14 | Diagnostic Imaging Report ---
APPROVED REPORT CPT Code: 17734 Present Symptoms Lower Extremity Pain: Comments: Hx DVT, HTN, P.E. BILATERAL: Imaging reveals a patent deep venous system bilaterally. There is no evidence of thrombus within the femoral, popliteal or tibial segments. The greater saphenous veins are also within normal limits. Doppler indicates normal spontaneous flow within these segments.
== END 2017-06-27 16:21 | disposition home or self-care (01) | DRG 100 ==
LOC: EDBD 03:57 → EMR 04:12 → 2E 04:56 → EDBEDREQ 05:26
DX: G40.409 Other generalized epilepsy and epileptic syndromes, not intractable, without status epilepticus (principal); I63.511 Cerebral infarction due to unspecified occlusion or stenosis of right middle cerebral artery; I10 Essential (primary) hypertension; E78.5 Hyperlipidemia, unspecified; Z86.718 Personal history of other venous thrombosis and embolism; Z79.01 Long term (current) use of anticoagulants; Z86.711 Personal history of pulmonary embolism; Z91.14 Patient's other noncompliance with medication regimen; E66.9 Obesity, unspecified; R25.1 Tremor, unspecified
CPT/HCPCS: 36415; 70450; 70551; 71010; 80053; 80061; 80299; 84484; 85025; 85610; 85730; 93005; 93306; 93970; 95819; 99285